=== PATIENT | male | born 2000 | race Two or more races ===

== ENCOUNTER 2020-08-04 19:05 | Emergency (ER) | payer OTHER ==
--- NOTE | 2020-08-04 19:39 | ER Document Report ---
ED Respiratory Problem - General Chief Complaint: Cough Stated Complaint: COUGH Time Seen by Provider: 08/04/20 19:34 Notes: CHIEF COMPLAINT: Cough HPI: 20-year-old male brought for evaluation of continued cough over the last 3 to 4 days. Patient had myalgia, cough, slight nausea no vomiting no abdominal pain no chest pain that began approximately 3 to 4 days ago. Mother states patient myalgia has resolved but he still has a bad dry cough. All other family members are sick with similar now. Patient has not had sore throat ROS: See HPI - all other systems were reviewed and are otherwise negative Constitutional: no fever Eyes: no drainage, no blurred vision ENT: no runny nose, no sore throat Cardiovascular: no chest pain Resp: no SOB, + cough GI: no vomiting, no diarrhea, no abdominal pain : no dysuria Integumentary: no rash Allergy: no hives Musculoskeletal: no extremity pain or swelling Neurological: no numbness/tingling, no weakness MEDICATIONS: I agree with the patient medications as charted by the RN. ALLERGIES: I agree with the allergies as charted by the RN. PAST MEDICAL HISTORY/PAST SURGICAL HISTORY: Reviewed and agree as charted by RN. SOCIAL HISTORY: Reviewed and agree as charted by RN. FAMILY HISTORY: No significant familial comorbid conditions directly related to patient complaint EXAM: Reviewed vital signs as charted by RN. CONSTITUTIONAL: Alert and oriented and responds appropriately to questions. Well-appearing; well-nourished HEAD: Normocephalic; atraumatic EYES: PERRL; Conjunctivae clear, sclerae non-icteric ENT: normal nose; no rhinorrhea; moist mucous membranes; pharynx without lesions noted, no uvula edema or deviation, no tonsillar hypertrophy, phonation normal NECK: Supple without meningismus; non-tender; no cervical lymphadenopathy, no masses CARD: RRR; no murmurs, no clicks, no rubs, no gallops; symmetric distal pulses RESP: Normal chest excursion without splinting or tachypnea; breath sounds clear and equal bilaterally; no wheezes, no rhonchi, no rales, pulse oximetry 97% on room air not hypoxic ABD/GI: Normal bowel sounds; non-distended; soft, non-tender, no rebound, no guarding; no palpable organomegaly or masses. BACK: The back appears normal and is non-tender to palpation, there is no CVA tenderness EXT: Normal ROM in all joints; non-tender to palpation; no cyanosis, no effusions, no edema SKIN: Normal color for age and race; warm; dry; good turgor; no acute lesions noted NEURO: Moves all extremities equally; Motor and sensory function intact PSYCH: The patient's mood and manner are appropriate. Grooming and personal hygiene are appropriate. MDM: 20-year-old male with cough over the last 4 days initially had myalgia and nausea no sore throat. All family members are ill. Suspect Covid. Will obtain chest x-ray to evaluate for infiltrate. If chest x-ray negative anticipate discharge on inhaler, Tessalon Perles, self quarantine at home pending test results Past Medical History - Social History Smoking Status: Unknown if Ever Smoked Family History: Reviewed & Not Pertinent Physical Exam - Vital signs Vitals: Temp Pulse Resp BP Pulse Ox 98.2 F 65 20 113/54 L 97 08/04/20 19:32 08/04/20 19:32 08/04/20 19:32 08/04/20 19:32 08/04/20 19:32 Course - Re-evaluation Re-evalutation: 08/04/20 20:16 Chest x-ray on my review does not show evidence of pneumonia or infiltrate. Will treat symptomatically follow-up PCP - Vital Signs Vital signs: Temp Pulse Resp BP Pulse Ox 98.2 F 65 20 113/54 L 97 08/04/20 19:32 08/04/20 19:32 08/04/20 19:32 08/04/20 19:32 08/04/20 19:32 Discharge - Discharge Clinical Impression: Cough, Person under investigation for COVID-19 Condition: Stable Disposition: HOME, SELF-CARE Instructions: COVID-19 Guidance for Persons Under Investigation Additional Instructions: You are considered a person under investigation for COVID-19 at this time self quarantine at home pending your test results which may take 2 to 5 days. You s hould receive notification from the hospital about your test results. Make sure you hydrate well. Use [id number] medications for cough and runny nose. Motrin Tylenol for body ache, sore throat or fever. 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 Use the albuterol inhaler 2 puffs every 4 hours as needed for shortness of breath or cough. Use the Tessalon Perles as well for cough. Prescriptions: Benzonatate [Tessalon Perles 100 mg Capsule] 100 mg PO Q8HP PRN #40 capsule PRN Reason: Albuterol Sulfate [Proair HFA Inhalation Aerosol 8.5 gm MDI] 2 puff IH Q4H PRN #1 mdi PRN Reason: Forms: Return to Work
--- NOTE | 2020-08-04 20:33 | RADIOLOGY REPORT (SQ) ---
EXAM DESCRIPTION: XR CHEST 1 VIEW COMPLETED DATE/TME: 08/04/2020 20:10 CLINICAL HISTORY: 20 years, Male, cough EXAM DESCRIPTION: CHEST SINGLE VIEW CLINICAL HISTORY: cough COMPARISON: None. FINDINGS: Single view of the chest is submitted. Cardiac silhouette is normal. No focal parenchymal or pleural disease. There is no significant pulmonary vascular engorgement. IMPRESSION: No evidence of acute cardiopulmonary disease.
[2020-08-05 02:01] VITALS: BP 108/70
== END 2020-08-04 21:30 | disposition home or self-care (01) ==
LOC: ER 19:05
DX: R05 Cough (principal); M79.10 Myalgia, unspecified site; R11.0 Nausea; Z20.828 Contact with and (suspected) exposure to other viral communicable diseases
CPT/HCPCS: 99284; 87635; 71045; C9803